=== PATIENT | male | born 1995 | race Hispanic/Latino ===

== ENCOUNTER 2017-01-06 21:52 | Emergency (ER) | payer OTHER ==
[~2017-01-06] VITALS: Ht 170.2 cm; Wt 71.6 kg
[2017-01-06] MEDS ORDERED: SULFAMETHOXAZOLE/TRIMETHOPRIM 800-160 MG (SEPTRA DS) TAB PO ONE (22:50)
[2017-01-06] MEDS ORDERED: SULF1TAB35 PO (22:51)
[2017-01-06] MEDS ORDERED: MUPIROCIN 2% OINT 22 GM (BACTROBAN) TUBE TOP ONE (22:55)
[2017-01-06] MEDS ORDERED: BACITRACIN OINTMENT 0.9 GM PACKET TOP ONE ×2 (22:57→23:00)
[2017-01-06 23:09] VITALS: BP 104/55
== END 2017-01-06 23:10 | disposition home or self-care (01) ==
LOC: ED 22:00
DX: L02.415 Cutaneous abscess of right lower limb (principal)
CPT/HCPCS: 10060; 87070; 87075; 87147; 87186; 99283